=== PATIENT | female | born 1985 | race Caucasian/White ===

== ENCOUNTER 2020-03-05 17:59 | Observation (INO) | payer OTHER ==
[~2020-03-05] VITALS: Ht 162.6 cm; Wt 54.1 kg
--- NOTE | 2020-03-05 18:20 | NUR ---
SAVINGS TELLER: PT AMBULATORY TO ROOM WITH STEADY GAIT AT THIS TIME FROM LOBBY WITH FOOD AND BEVERAGE COORDINATOR
--- NOTE | 2020-03-05 18:30 | NUR ---
PT TO US VIA NANCY.
[2020-03-05 18:39] LABS: BASOPHILS % (AUTO) 1 % (0-1); EOSINOPHILS % (AUTO) 2 % (1-7); LYMPHOCYTES % (AUTO) 30 % (22-44); MEAN CORPUSCULAR HEMOGLOBIN 32.1 pg (27.0-34.8); MEAN CORPUSCULAR HGB CONC 35.1 g/dL (32.4-35.8); MEAN PLATELET VOLUME 8.8 fL (7.4-10.4); MONOCYTES % (AUTO) 6 % (2-9); NEUTROPHILS % (AUTO) 61 % (42-75); PLATELET COUNT 181 x10^3/uL (130-400); RED BLOOD COUNT 4.32 x10^6/uL (3.82-5.3); RED CELL DISTRIBUTION WIDTH 12.7 % (9.6-15.2)
[2020-03-05 18:44] LABS: MD NO
[2020-03-05 18:50] LABS: ANION GAP 9 mmol/L (5-15); CHLORIDE 106 mmol/L (98-107); CREATININE 0.93 mg/dL (0.55-1.02)
--- NOTE | 2020-03-05 19:00 | NUR ---
PT BACK FROM US. ERP AT BS. SIGNIFICANT OTHER AT BS.
--- NOTE | 2020-03-05 21:18 | NUR ---
DR. PEREZ WAS IN TO SPEAK WITH PT & ERP. PLAN FOR D&E.
--- NOTE | 2020-03-05 21:20 | NUR ---
CALLED LAB TO SEND RAPID COVID TEST.
--- NOTE | 2020-03-05 21:41 | NUR ---
RAPID COVID SWAB SENT. PT UNDERSTANDS POC.
--- NOTE | 2020-03-05 21:42 | NUR ---
REPORTED TO HOG SCALDER.
--- NOTE | 2020-03-05 22:05 | NUR ---
PT SIGNED CONSENT FOR D&E. RAPID COVID TEST NEGATIVE. REPORTED TO OR.
[2020-03-05 22:27] VITALS: BP 107/60
[2020-03-05] MEDS ORDERED: PROPOFOL 50 ML ONE (22:27)
[2020-03-05] MEDS ORDERED: MIDAZOLAM 1 MG/ML, 2ML ONE (22:27)
[2020-03-05] MEDS ORDERED: FENTANYL PF 100 MCG/2ML ONE ×2 (22:28→22:46)
[2020-03-05] MEDS ORDERED: SILVER NITRATE STICK TP ONE (22:37)
[2020-03-05] MEDS ORDERED: BUPIVACAINE/PF 0.25% ONE (22:38)
[2020-03-05] MEDS ORDERED: EPINEPHRINE 1 MG/ML, 1ML ONE (22:39)
[2020-03-05] MEDS ORDERED: OXYTOCIN 10 UNITS/ML, 1ML ONE (22:39)
[2020-03-05] MEDS ORDERED: METHYLERGONOVINE 0.2 MG/ML IM ONE (22:40)
[2020-03-05] MEDS ORDERED: MISOPROSTOL 200 MCG TABLET ONE (22:40)
[2020-03-05] MEDS ORDERED: DIPHENHYDRAMINE 50 MG/ML, 1ML IVPush PRN (23:00)
[2020-03-05] MEDS ORDERED: LABETALOL 5MG/ML, 20ML IV PRN (23:00)
[2020-03-05] MEDS ORDERED: ACETAMINOPHEN 325 MG TABLET PO PRN (23:00)
[2020-03-05] MEDS ORDERED: MEPERIDINE/PF 25MG/0.5ML IVPush PRN (23:00)
[2020-03-05] MEDS ORDERED: EPHEDRINE 50 MG/ML, 1ML IVPush PRN (23:00)
[2020-03-05] MEDS ORDERED: PROMETHAZINE 25 MG/ML, 1ML IVPush PRN (23:00)
[2020-03-05] MEDS ORDERED: FENTANYL PF 100 MCG/2ML IV PRN (23:00)
[2020-03-05] MEDS ORDERED: OXYcodone 5 MG/5 ML ORAL.SOL UDC PO PRN (23:00)
[2020-03-05] MEDS ORDERED: ONDANSETRON 2MG/ML, 2ML IVPush PRN (23:00)
[2020-03-05] MEDS ORDERED: HYDROmorphone 1 MG/ML, 1ML INJ IVPush PRN (23:00)
[2020-03-05] MEDS ORDERED: EPHEDRINE 50 MG/ML, 1ML IM PRN (23:00)
[2020-03-05] MEDS ORDERED: DIAZEPAM 5 MG/ML, 2ML IVPush PRN (23:00)
[2020-03-05] MEDS ORDERED: MISOPROSTOL 200 MCG TABLET PO ONE (23:04)
[2020-03-05] MEDS ORDERED: BUPIVACAINE/PF-EPI 0.25% 1:200K INFIL ONE (23:05)
[2020-03-05] MEDS ORDERED: OXYTOCIN 10 UNITS/ML, 1ML IVPush ONE (23:06)
[2020-03-05] MEDS ORDERED: MEPERIDINE/PF 25MG/ML,1ML ONE (23:29)
[2020-03-06] MEDS ORDERED: OXYC-302 PO (00:18)
[2020-03-06] MEDS ORDERED: IBUP-1222 PO (00:20)
[2020-03-06] MEDS ORDERED: DOCU-131 PO (00:20)
[2020-03-06] MEDS ORDERED: OXYcodone/APAP 5/325MG TABLET PO PRN (00:30)
[2020-03-06] MEDS ORDERED: ONDANSETRON 2MG/ML, 2ML IVPush PRN (00:30)
[2020-03-06] MEDS ORDERED: MORPHINE SULFATE 4 MG/ML, 1ML IVPush PRN (00:30)
[2020-03-06] MEDS ORDERED: KETOROLAC 30 MG/1 ML IV PRN (00:30)
[2020-03-06] MEDS ORDERED: LACTATED RINGERS 1,000 ML IV SCH (00:30)
[2020-03-06] MEDS ORDERED: IBUPROFEN 600 MG TABLET PO SCH (06:00)
== END 2020-03-06 01:00 | disposition home or self-care (01) ==
LOC: ED 18:29 → EDIP 21:28 → 4NE 23:52
PROVIDERS: ADMIT Obstetrics & Gynecology; ATTEND Obstetrics & Gynecology
DX: O02.0 Blighted ovum and nonhydatidiform mole (principal); Z20.828 Contact with and (suspected) exposure to other viral communicable diseases; N85.4 Malposition of uterus; Z87.09 Personal history of other diseases of the respiratory system; Z88.0 Allergy status to penicillin; Z79.899 Other long term (current) drug therapy; Z67.90 Unspecified blood type, Rh positive; Z3A.08 8 weeks gestation of pregnancy
CPT/HCPCS: 36415; 59820; 76830; 80048; 82040; 84702; 85025; 86850; 86900; 87635; 88305; 99284; G0378; J0171; J2175; J2250; J2590; J2704; J3010; 86901; J2210

== ENCOUNTER 2020-03-08 15:47 | Emergency (ER) | payer OTHER ==
[~2020-03-08] VITALS: Ht 162.6 cm; Wt 66.5 kg
[~2020-03-08 15:47] MED LIST: DOCU-131 PO; IBUP-1222 PO; OXYC-302 PO
[2020-03-08 16:05] VITALS: BP 125/89
--- NOTE | 2020-03-08 16:48 | NUR ---
DR SCHROEDER IN ROOM. VS STABLE. US IN ROOM. CALL LIGHT IN PLACE. WILL CONTINUE TO MONITOR.
--- NOTE | 2020-03-08 17:05 | NUR ---
US IN PROGRESS AT BEDSIDE.
--- NOTE | 2020-03-08 17:31 | NUR ---
LAB IN ROOM
[2020-03-08 17:41] LABS: BASOPHILS % (AUTO) 1 % (0-1); EOSINOPHILS % (AUTO) 1 % (1-7); LYMPHOCYTES % (AUTO) 22 % (22-44); MEAN CORPUSCULAR HEMOGLOBIN 32.2 pg (27.0-34.8); MEAN CORPUSCULAR HGB CONC 35.3 g/dL (32.4-35.8); MEAN PLATELET VOLUME 8.5 fL (7.4-10.4); MONOCYTES % (AUTO) 5 % (2-9); NEUTROPHILS % (AUTO) 71 % (42-75); PLATELET COUNT 176 x10^3/uL (130-400); RED BLOOD COUNT 3.85 x10^6/uL (3.82-5.3); RED CELL DISTRIBUTION WIDTH 12.5 % (9.6-15.2)
[2020-03-08 17:49] LABS: ALBUMIN 3.5 g/dL (3.4-5.0); ANION GAP 6 mmol/L (5-15); CALCIUM 8.3 mg/dL (8.5-10.1); CHLORIDE 111 mmol/L (98-107); CREATININE 0.85 mg/dL (0.55-1.02)
[2020-03-08 18:00] LABS: MD NO
--- NOTE | 2020-03-08 18:21 | NUR ---
PT RESTING IN ROOM. REGULAR RESP. NO ACUTE DISTRESS NOTED. CALL LIGHT IN PLACE. WILL CONTINUE TO MONITOR.
[2020-03-08 19:02] LABS: ALBUMIN 3.5 g/dL (3.4-5.0); BILIRUBIN, DIRECT 0.1 mg/dL (0.1-0.2)
--- NOTE | 2020-03-08 19:03 | NUR ---
REPORT GIVEN TO LORIE DREW
[2020-03-08 19:04] LABS: BILIRUBIN,INDIRECT 0.4 mg/dL (0.0-2.0); BILIRUBIN,TOTAL 0.5 mg/dL (0.2-1.0); TOTAL PROTEIN 6.8 g/dL (6.4-8.2)
[2020-03-08] MEDS ORDERED: METHOTREXATE/PF 25 MG/ML, 2ML IM ONE (20:00)
--- NOTE | 2020-03-08 20:00 | NUR ---
SOFTWARE DESIGN ANALYST MARIA ANTONIA CALLED FOR [facility] TO GIVE MED
--- NOTE | 2020-03-08 21:13 | NUR ---
PT GOT MED THER WAS A DELAY PHARM DID NOT HAVE MED AND [facility] DID NOT HAVE MED, PHARM HAD TO GO TO GO TO OFF SITE LOCATION TO OB TAIN MED, PT EXPRESSES HER DISAPROVAL OF HAVING TO WAIT FOR MED AND D/C AT THIS TIME DR SCHROEDER NOTIFIED
== END 2020-03-08 21:28 | disposition home or self-care (01) ==
LOC: ED 18:23
DX: O00.80 Other ectopic pregnancy without intrauterine pregnancy (principal); Z3A.01 Less than 8 weeks gestation of pregnancy
CPT/HCPCS: 76830; 80048; 80076; 84702; 85025; 96372; 99284; J9250; 82040

== ENCOUNTER 2020-03-15 09:07 | Day surgery (SDC) | payer OTHER ==
[~2020-03-15] VITALS: Ht 162.6 cm; Wt 63.1 kg
--- NOTE | 2020-03-15 10:00 | NUR ---
pt refuses transvaginal us, insists her md be there for it or she wont have it, sts will agree to transabdominal us. dr waldron notified. pt's father sts "can you granulator a liter of fluids she's still dizzy and that will make the anesthesiologist happy". bp stable/vs as charted. as
[2020-03-15 10:08] LABS: BASOPHILS % (AUTO) 0 % (0-1); EOSINOPHILS % (AUTO) 1 % (1-7); LYMPHOCYTES % (AUTO) 14 % (22-44); MEAN CORPUSCULAR HEMOGLOBIN 31.8 pg (27.0-34.8); MEAN CORPUSCULAR HGB CONC 35.3 g/dL (32.4-35.8); MEAN PLATELET VOLUME 8.4 fL (7.4-10.4); MONOCYTES % (AUTO) 4 % (2-9); NEUTROPHILS % (AUTO) 82 % (42-75); PLATELET COUNT 201 x10^3/uL (130-400); RED BLOOD COUNT 4.29 x10^6/uL (3.82-5.3); RED CELL DISTRIBUTION WIDTH 12.5 % (9.6-15.2)
[2020-03-15 10:12] LABS: ALBUMIN 3.8 g/dL (3.4-5.0); ANION GAP 8 mmol/L (5-15); CALCIUM 8.7 mg/dL (8.5-10.1); CHLORIDE 108 mmol/L (98-107)
--- NOTE | 2020-03-15 10:29 | NUR ---
ivf hung, us at bedside. as
[2020-03-15 10:30] LABS: ALANINE AMINOTRANSFERASE 18 U/L (12-78); ALKALINE PHOSPHATASE 59 U/L (45-117); BILIRUBIN,TOTAL 0.5 mg/dL (0.2-1.0); CREATININE 0.89 mg/dL (0.55-1.02); MD NO; TOTAL PROTEIN 7.6 g/dL (6.4-8.2)
[2020-03-15] MEDS ORDERED: SODIUM CHLORIDE 0.9% 1,000ML IVBOLUS ONE (10:30)
--- NOTE | 2020-03-15 10:59 | NUR ---
us done pt to bathroom gait steady. as
[2020-03-15 11:04] VITALS: BP 101/60
--- NOTE | 2020-03-15 11:37 | NUR ---
report to jessica alvarez. as
[2020-03-15] MEDS ORDERED: INDIGO CARMINE 0.8%, 5ML ONE (11:43)
[2020-03-15] MEDS ORDERED: BUPIVACAINE/PF 0.25% ONE (11:43)
[2020-03-15] MEDS ORDERED: EPINEPHRINE 1 MG/ML, 1ML ONE (11:43)
[2020-03-15] MEDS ORDERED: CHLORHEXIDINE 15 ML UDC ONE (11:53)
[2020-03-15] MEDS ORDERED: FENTANYL PF 100 MCG/2ML ONE ×2 (12:12→13:10)
[2020-03-15] MEDS ORDERED: MIDAZOLAM 1 MG/ML, 2ML ONE (12:12)
[2020-03-15] MEDS ORDERED: KETOROLAC 30 MG/1 ML ONE (12:21)
[2020-03-15] MEDS ORDERED: ALBUTEROL SULFATE 2.5 MG/3 ML NPPB PRN (13:00)
[2020-03-15] MEDS ORDERED: hydrALAzine 20 MG/ML, 1ML IV PRN (13:00)
[2020-03-15] MEDS ORDERED: FENTANYL PF 100 MCG/2ML IV PRN (13:00)
[2020-03-15] MEDS ORDERED: METHOCARBAMOL 1,000 MG in DEXTROSE 5% 100 ML IV PRN (13:00)
[2020-03-15] MEDS ORDERED: LABETALOL 5MG/ML, 20ML IV PRN (13:00)
[2020-03-15] MEDS ORDERED: OXYcodone 5 MG/5 ML ORAL.SOL UDC PO PRN (13:00)
[2020-03-15] MEDS ORDERED: ACETAMINOPHEN 325 MG TABLET PO PRN (13:00)
[2020-03-15] MEDS ORDERED: HYDROmorphone 1 MG/ML, 1ML INJ IVPush PRN (13:00)
[2020-03-15] MEDS ORDERED: LORazepam 2 MG/ML, 1ML IVPush PRN (13:00)
[2020-03-15] MEDS ORDERED: MEPERIDINE/PF 25MG/0.5ML IVPush PRN (13:00)
[2020-03-15] MEDS ORDERED: PROMETHAZINE 25 MG/ML, 1ML IVPush PRN (13:00)
[2020-03-15] MEDS ORDERED: CEFAZOLIN 1,000 MG ONE (13:12)
[2020-03-15] MEDS ORDERED: ONDANSETRON 2MG/ML, 2ML ONE (13:12)
[2020-03-15] MEDS ORDERED: ROCURONIUM 10MG/ML,5ML ONE (13:12)
[2020-03-15] MEDS ORDERED: DEXAMETHASONE 4 MG/ML, 1ML ONE (13:12)
[2020-03-15] MEDS ORDERED: PROPOFOL 10 MG/ML, 20ML ONE (13:12)
[2020-03-15] MEDS ORDERED: SILVER NITRATE STICK TP ONE (13:12)
[2020-03-15] MEDS ORDERED: NEOSTIGMINE 1 MG/ML, 10ML ONE (13:12)
[2020-03-15] MEDS ORDERED: GLYCOPYRROLATE 0.2MG/1ML, 5ML ONE (13:12)
[2020-03-15] MEDS ORDERED: MEPERIDINE/PF 25MG/ML,1ML ONE (13:52)
[2020-03-15] MEDS ORDERED: DIPH,PERTUSS(ACELL),TET VAC/PF 0.5 ML IM-VACC ONE (20:29)
== END 2020-03-15 15:45 | disposition home or self-care (01) ==
LOC: EDSTATUS 09:33 → ED 09:54 → EDIP 11:17 → UNDOADMIN 11:17 → OUT 15:45
PROVIDERS: ATTEND Emergency Medicine
DX: O00.101 Right tubal pregnancy without intrauterine pregnancy (principal); N83.8 Other noninflammatory disorders of ovary, fallopian tube and broad ligament; Z20.828 Contact with and (suspected) exposure to other viral communicable diseases; Z79.891 Long term (current) use of opiate analgesic; Z79.899 Other long term (current) drug therapy; Z88.0 Allergy status to penicillin; Z91.040 Latex allergy status; Z98.890 Other specified postprocedural states
CPT/HCPCS: 36415; 59151; 76856; 80053; 84702; 85025; 86850; 86900; 87635; 88305; 93005; 96374; 99285; J0171; J0690; J1100; J1885; J2175; J2250; J2405; J2704; J2710; J3010; J7030